=== PATIENT | female | born 1955 | race Caucasian/White ===

== ENCOUNTER → 2018-08-16 | Outpatient (CLI) | payer BC | LOC: COL.RAD 11:00 | DX: S92.311A Displaced fracture of first metatarsal bone, right foot, initial encounter for closed fracture (principal); S92.321A Displaced fracture of second metatarsal bone, right foot, initial encounter for closed fracture; S92.331A Displaced fracture of third metatarsal bone, right foot, initial encounter for closed fracture; S93.321A Subluxation of tarsometatarsal joint of right foot, initial encounter; M14.69 Charcot's joint, multiple sites ==

== ENCOUNTER → 2019-01-28 | Outpatient (CLI) | payer BC | LOC: COL.RAD 08:00 | DX: K76.0 Fatty (change of) liver, not elsewhere classified (principal); N20.0 Calculus of kidney; Q63.2 Ectopic kidney | CPT/HCPCS: Q9967 ==

== ENCOUNTER → 2019-02-14 | Outpatient (CLI) | payer BC | LOC: ZCOL.LAB 14:44 | DX: E11.621 Type 2 diabetes mellitus with foot ulcer (principal) ==

== ENCOUNTER 2019-03-30 13:25 | Inpatient (IN) | payer BC ==
[~2019-03-30] VITALS: Ht 167.6 cm; Wt 97.4 kg
[2019-04-29] VITALS (12 sets, daily range): BP systolic 112–142; BP diastolic 57–100; PULSE 90–112; TEMP 98.1–98.5
[2019-04-29 06:07] LABS: HEMATOCRIT 46.4 % (37.0-47.0); HEMOGLOBIN 15.4 g/dl (12.5-16.0); MEAN CELL VOLUME 91 fl (80.0-100.0); MEAN CORPUSCULAR HEMOGLOBIN 30 pg (27.0-31.0); MEAN CORPUSCULAR HGB CONC 33 g/dl (33.0-37.0); PLATELET COUNT 239 K/mm3 (130-400); RED BLOOD COUNT 5.11 M/mm3 (4.10-5.30); REDCELL DISTRIBUTION WIDTH-CV 14.4 % (11.5-14.5)
[2019-04-29 06:29] LABS: PROTHROMBIN TIME 11.3 SECONDS (9.7-12.8)
[2019-04-29 06:41] LABS: CALCIUM 10.6 mg/dL (8.4-10.2); CREATININE, serum 0.73 (0.52-1.25); POTASSIUM 4.5 mmol/L (3.4-5.0)
[2019-04-29] MEDS ORDERED: CYMBALTA 60MG60 MG PO (06:53)
[2019-04-29] MEDS ORDERED: ZOCOR 10MG10 MG PO (06:53)
[2019-04-29] MEDS ORDERED: LOPRESSOR 550 MG/TAB PO (06:54)
[2019-04-29] MEDS ORDERED: PRIL40 PO (06:55)
[2019-04-29] MEDS ORDERED: ZESTRIL 10MG10 MG PO (06:55)
[2019-04-29] MEDS ORDERED: NEURONTIN300 MG/CAP PO (06:57)
[2019-04-29] MEDS ORDERED: NEURONTIN600 MG/TAB PO ×2 (06:58→07:00)
[2019-04-29] MEDS ORDERED: KLONOPIN 0.5MG0.5 MG PO (07:01)
[2019-04-29] MEDS ORDERED: NORCO 325 MG-7.1 TAB PO (07:01)
[2019-04-29] MEDS ORDERED: REQUIP 0.5MG0.5 MG PO (07:02)
[2019-04-29] MEDS ORDERED: NOVOLOG 100U100 U/M1 SQ (07:03)
[2019-04-29] MEDS ORDERED: OZEMPIC0.25 MG/0. SQ (07:04)
[2019-04-29] MEDS ORDERED: TRESIBA100 UNIT/1 SQ (07:04)
[2019-04-29] MEDS ORDERED: VITAMINC1000TA PO (07:05)
[2019-04-29] MEDS ORDERED: ECHINACEA400 MG PO (07:06)
[2019-04-29] MEDS ORDERED: MELATIN 3 MG-11 TAB PO (07:06)
[2019-04-29] MEDS ORDERED: FORTIFY PO (07:07)
[2019-04-29] MEDS ORDERED: ONE-A-DAY ESSE1 EACH PO (07:08)
[2019-04-29] MEDS ORDERED: CALCIUM CARBON650 M2 (07:09)
[2019-04-29] MEDS ORDERED: XYZAL5 MG PO (07:10)
[2019-04-29] MEDS ORDERED: VITAMIN D31000 I1 PO (07:10)
[2019-04-29] MEDS ORDERED: AZO-CRANBERRY450 MG PO (07:11)
[2019-04-30 03:45] VITALS: BP 109/62; PULSE 91; TEMP 98.3
[2019-04-30 11:42] VITALS: BP 115/63; PULSE 88; TEMP 98.2
[2019-04-30 20:50] VITALS: BP 121/50; PULSE 92; TEMP 98.1
[2019-05-01 03:50] VITALS: BP 126/53; PULSE 88; TEMP 97.4
[2019-05-01 08:23] VITALS: BP 141/73; PULSE 87; TEMP 98.5
[2019-05-01 11:55] VITALS: BP 125/62; PULSE 82; TEMP 98.8
[2019-05-01 16:29] VITALS: BP 105/62; PULSE 80; TEMP 98.4
[2019-05-01 20:18] VITALS: BP 101/63; PULSE 92; TEMP 98.1
[2019-05-01 23:56] VITALS: BP 101/64; PULSE 96; TEMP 98.3
[2019-05-02 05:17] VITALS: BP 110/66; PULSE 67; TEMP 98.4
[2019-05-02] MEDS ORDERED: NORCO 325 MG-7.1 TAB PO (07:03)
[2019-05-02] MEDS ORDERED: SENNA-S 50 MG-81 TAB PO (07:04)
[2019-05-02] MEDS ORDERED: ROXICODONE 55 MG/TAB PO (07:04)
[2019-05-02 07:30] VITALS: BP 106/61; PULSE 106; TEMP 98.7
[2019-05-02 11:36] VITALS: BP 99/49; PULSE 98; TEMP 98.7
== END 2019-05-02 15:42 | DRG 618 ==
LOC: INPTSU 04-29 05:10 → SURG 04-29 07:30
PROVIDERS: Nurse Anesthetist, Certified Registered; ADMIT Orthopaedic Surgery
PROC: 0Y6H0Z1 Detachment at Right Lower Leg, High, Open Approach (ICD-10-PCS; principal; 2019-04-29 07:30)
DX: E11.621 Type 2 diabetes mellitus with foot ulcer (principal); E11.9 Type 2 diabetes mellitus without complications; F32.9 Major depressive disorder, single episode, unspecified; M19.90 Unspecified osteoarthritis, unspecified site; I10 Essential (primary) hypertension; F17.210 Nicotine dependence, cigarettes, uncomplicated; E11.610 Type 2 diabetes mellitus with diabetic neuropathic arthropathy; K74.60 Unspecified cirrhosis of liver; F41.9 Anxiety disorder, unspecified; G25.81 Restless legs syndrome; Z79.4 Long term (current) use of insulin; Z98.51 Tubal ligation status; Z90.710 Acquired absence of both cervix and uterus
CPT/HCPCS: J0690; J1100; J1650; J1815; J1885; J2250; J2370; J2405; J2704; J2795; J3010; J7030; L1830

== ENCOUNTER 2019-05-02 14:17 | Inpatient (IN) | payer BC ==
[~2019-05-02] VITALS: Ht 167.6 cm; Wt 95.6 kg
[~2019-05-02 14:17] MED LIST: AZO-CRANBERRY450 MG PO; CALCIUM CARBON650 M2; CYMBALTA 60MG60 MG PO; ECHINACEA400 MG PO; FORTIFY PO; KLONOPIN 0.5MG0.5 MG PO; LOPRESSOR 550 MG/TAB PO; MELATIN 3 MG-11 TAB PO; NEURONTIN300 MG/CAP PO; NEURONTIN600 MG/TAB PO; NORCO 325 MG-7.1 TAB PO; NOVOLOG 100U100 U/M1 SQ; ONE-A-DAY ESSE1 EACH PO; OZEMPIC0.25 MG/0. SQ; PRIL40 PO; REQUIP 0.5MG0.5 MG PO; ROXICODONE 55 MG/TAB PO; SENNA-S 50 MG-81 TAB PO; TRESIBA100 UNIT/1 SQ; VITAMIN D31000 I1 PO; VITAMINC1000TA PO; XYZAL5 MG PO; ZESTRIL 10MG10 MG PO; ZOCOR 10MG10 MG PO
[2019-05-02 16:23] VITALS: BP 102/49; PULSE 104; TEMP 99.2
[2019-05-02 18:00] VITALS: BP 102/49; PULSE 104; TEMP 99.2
--- NOTE | 2019-05-02 19:00 | NUR ---
PATIENT RESTING IN BED DURING CHANGE OF SHIFT REPORT FROM DAY SHIFT NURSE. CHAIR ALARM ON.
--- NOTE | 2019-05-02 19:56 | NUR ---
Patient arrived to [facility] room #339 with by her side. VSS, but is on oxygen 2 L NC at this time. Patient denied questions about therapies at this time. Patient has home medications that her will bring in for her to give to the nurse. Dr. Dorantes was okay with patient taking these home medications. Reported off to night nurse.
--- NOTE | 2019-05-02 20:00 | NUR ---
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
--- NOTE | 2019-05-03 01:40 | NUR ---
PATIENT RESTING WITH EYES CLOSED, BREATHING NONLABORED AND EVEN. DOES NOT AWAKEN WHEN ROOM ENTERED BY STAFF. BED ALARM ON.
[2019-05-03 05:49] VITALS: BP 104/58; PULSE 96; TEMP 98.4
--- NOTE | 2019-05-03 07:35 | NUR ---
PATIENT RESTING IN BED DURING CHANGE OF SHIFT REPORT, SLEEPING. BREATHING NONLABORED AND EVEN. BED ALARM ON.
--- NOTE | 2019-05-03 10:33 | NUR ---
Initial visit: Patient thanked Health And Wellness Advisor for looking ion on her and offering God's blessings.
--- NOTE | 2019-05-03 11:04 | NUR ---
Patient attending all therapies this morning. Patient reporting pain 4-7/10 this morning and given prn pain meds with good effect. Patient continues on oxygen 2 Liters this morning. She was educated on the need to use her IS to help with expanding her lungs. Patient shows that she is able to use the IS properly. Will continue to monitor.
--- NOTE | 2019-05-03 16:18 | NUR ---
Loan Assistant met with patient to complete initial intake as patient is new to [facility]. Patient lives in [place] with her , Seth (ph#[phone]) and sees Dr. Alfonso Duke for primary care. Patient obtains medications from [facility] with no difficulties. Patient states she has a four wheeled walker and wheelchair at home although the wheelchair she has is not the one she needs. Patient states she needs a wheelchair with leg lifts. Patient states she is also having a walk in tub installed in her home. Patient reports she will also need to obtain a gait belt prior to discharge. SW will continue to monitor for discharge needs.
--- NOTE | 2019-05-03 17:00 | NUR ---
At approximately 11:30 am this nurse, saw CHERI roberts OTMax at the [facility] nurse station reporting that patient was on the floor of the shower. The patient had been getting a shower and the OTS was helping her with this task at the time of the fall. This nurse followed OLYA Allred into patient room #339 where this nurse saw the patient sitting on the floor of the shower. Patient was not dressed, had a towel around her, and patient reported that she fell when she was pivot transferring from the shower bench to the wheelchair. Patient reported that when she was pivoting she started slipping. She also said she was singing the tune, "Slip Sliding away" when she lost her balance and slid and fell on the floor. The posterior part of her Right BKA stump hitting the shower bench and her right upper arm hitting the shower bench when falling to the floor. Patient had her leg securely wrapped and her immobiizer on when this occured. Patient was assessed and was determined that she was okay and the three of us staff members lifted her up from the floor and into her wheelchair. Vital Signs were stable: BP 117/55, P 97, O2 94%, R 20. Patient was then dried off and then transferred from wheelchair to her bed so that this nurse could evaluate for any injuries to her RBKA and Right upper arm. Patient had good range of motion to her right upper arm and did not report any pain to that area. The RBKA stump was evaluated and there were no signs of new bruising or lacerations. The jena to the stump were intact and there was no redness or drainage observed other than a small amount of blood around the suture sight when removing the dressing. Straw Hat Brim Raiser Operator was called as well as Cassidy Chan. Dr. Mckee's office was called and spoke to nurse. No new orders were given. Dr. Dorantes was contacted via Myla Roberts per my request since i was reapplying patient's bandage and immobilizer. No new orders per Dr. Dorantes. Patient was given prn pain meds to help with her normal phantom right stump pain. Staff then continued to monitor. Patient did later report some pain to her right upper arm and ice was applied to that area. No bruising was observed at that time, just some aching. Patient also realized that her blood sugar monitor that was attached to her right posterior arm must have fallen off when she fell. The device could not be found, assuming that it was thrown out with the towels when therapy cleaned up the bathroom. Patient said that she would just order another one, since she only had a few days left on it before it was due to be replaced anyway. This nurse then continued to monitor patient.
[2019-05-03 17:24] VITALS: BP 123/50; PULSE 96; TEMP 98.5
--- NOTE | 2019-05-03 23:47 | NUR ---
PATIENT SLEEPING WHEN DOOR TO ROOM OPENED, DID NOT AWAKEN, BREATHING NONLABORED AND EVEN. BED ALARM ON.
--- NOTE | 2019-05-04 02:50 | NUR ---
PATIENT SLEEPING, DOES NOT AWAKEN WHEN DOOR TO ROOM OPENS AND ROOM ENTERED BY STAFF. BREATHING NONLABORED AND EVEN. OXYGEN CONTINUES PER NASAL CANNULA. BED ALARM ON.
--- NOTE | 2019-05-04 03:46 | NUR ---
PATIENT SLEEPING, DOES NOT AWAKEN WHEN DOOR TO ROOM OPENED, BREATHING NONLABORED AND EVEN, OXYGEN CONTINUES PER NASAL CANNULA. BED ALARM ON.
[2019-05-04 03:49] VITALS: BP 93/54; PULSE 95; TEMP 98.2
--- NOTE | 2019-05-04 07:00 | NUR ---
Report received from HIMANSHU Horn. Pt in bed resting, denies needs, will continue to monitor.
--- NOTE | 2019-05-04 07:29 | NUR ---
Patient resting in bed during change of shift report given to day shift nurse. Bed alarm on.
[2019-05-04 07:43] LABS: BASO % 0.3 % (0.0-2.0); EOS # 0.5 (0.0-0.7); EOS % 4.2 % (0-4.0); GRAN # 7.2 (1.4-6.5); HEMOGLOBIN 14.8 g/dl (12.5-16.0); LYMPH # 2.7 (1.2-3.4); LYMPH % 22.8 % (20.0-51.0); MEAN CELL VOLUME 93 fl (80.0-100.0); MEAN CORPUSCULAR HEMOGLOBIN 31 pg (27.0-31.0); MEAN CORPUSCULAR HGB CONC 33 g/dl (33.0-37.0); MEAN PLATELET VOLUME 9.6 fl (7.4-10.4); MONO # 1.3 (0.1-0.6); MONO % 11.2 % (1.7-9.3); PLATELET COUNT 274 K/mm3 (130-400); RED BLOOD COUNT 4.83 M/mm3 (4.10-5.30); REDCELL DISTRIBUTION WIDTH-CV 14.4 % (11.5-14.5)
[2019-05-04 07:47] LABS: CALCIUM 9.2 mg/dL (8.4-10.2); CREATININE, serum 0.67 (0.52-1.25); MAGNESIUM 1.8 mg/dL (1.6-2.3); POTASSIUM 4.3 mmol/L (3.4-5.0)
--- NOTE | 2019-05-04 08:00 | NUR ---
Assessment charted. Pt c/o pain to R stump after moving in bed this am. PRN pain meds provided. Dressing to RLE is CDI. Denies other needs, will continue to monitor.
--- NOTE | 2019-05-04 16:04 | NUR ---
Fireproof Door Assembler met with patient to provide and review team conference notes. SW spoke with patient about recommendation for Home Health and provided Medicare.gov list of HH agencies. Patient selected [facility]. SW contacted [facility] and faxed a referral. SW also spoke with patient about scheduling a family meeting for tomorrow at 1315. Patient states this will work for her Seth and that she will notify him. Patient's sister, Leanna (ph#[phone]) called during meeting with SW and advised she would be available to participate tomorrow by phone. SW contacted patient's other sister Eileen (ph#[phone]) and left a message. SW contacted Myla, [facility] Director to provide time for tomorrow's meeting. SW to continue to follow.
[2019-05-04 16:46] VITALS: BP 105/50; PULSE 107; TEMP 98.4
--- NOTE | 2019-05-04 18:22 | NUR ---
Pt has done well over shift, did not have any episodes of safety risk for falls today. Resting in bed, eating well, refused insulin tonight with WBG of 106, RN agreeable to this plan. Will give bedside shift report to nightshift nurse who will resume care.
[2019-05-04 20:56] VITALS: BP 118/58; PULSE 108
--- NOTE | 2019-05-04 21:30 | NUR ---
Patient declines snack. Rests in bed. Nurse removed prerna hose LLE and BLE elevated on pillows. HS meds all reviewed along with norco for pain and given. Nurse lowers HOB and patient repositions self up in bed.
--- NOTE | 2019-05-05 02:30 | NUR ---
Patient has been resting quietly in bed with eyes closed. Up to the bathroom with CGA and walker. Voids and has small bm then rests back in bed. Denies need for pain med at this time.
[2019-05-05 05:14] VITALS: BP 128/73; PULSE 101; TEMP 98
[2019-05-05 15:15] VITALS: BP 108/54; PULSE 96; TEMP 98.2
--- NOTE | 2019-05-05 16:00 | NUR ---
Bowling Teacher participated in family meeting which included patient's daughters Kristina (ph#[phone]) and Maribel (ph#[phone]), patient's sisters Eileen and Leanna, patient's Seth, IPR Director Myla, and the therapy team. Myla opened the meeting by explaining purpose then PT/OT review patient's progress and discharge needs. Patient's sisters had planned to travel to [place] to stay with patient upon discharge but now feel they will not be able to due to COVID-19. The therapy team assured patient that with Home Health and some assistance from Seth with bathing, patient should be safe to discharge home. Patient is agreeable to this. Patient's daughter reports she will also be able to stay with her mom for part of the time to provide additional assistance. Patient to discharge Thursday. JOELLEN followed up with patient about ordering a new wheelchair as the one she has is old and would be difficult to obtain leg lifts for. Patient is agreeable to this. JOELLEN presented DME Choice Form and patient selected [facility]. JOELLEN placed form in chart and will follow up with order tomorrow. JOELLEN contacted [facility] and they are still screening referral to ensure coverage is available for patient. JOELLEN to continue to follow.
--- NOTE | 2019-05-05 16:56 | NUR ---
Patient resting in bed at this time. Patient remains alert and oriented, answers questions appropriately. Patient did c/o 7/10 pain in her right leg this morning before therapy, administered PRN pain medication and patient later reported that pain was well controlled. Patient's BG was WNL before lunch and patient declined her scheduled novolog, stating that she wasn't very hungry and was afraid of a hypoglycemic episode. Patient denies further needs at this time, call light within reach.
[2019-05-05 20:46] VITALS: BP 116/59; PULSE 100
--- NOTE | 2019-05-06 05:06 | NUR ---
Patient has rested well throughout the night. At beginning of the shift, patient denied pain. At about 0300, patient ambulated to the restroom with SBA from staff. At that time, patient stated pain 8/10 to right BKA. PRN Oxycodone administered and effective. Patient has been asleep since. Denies any further needs. Will continue to monitor.
[2019-05-06 05:55] VITALS: BP 119/64; PULSE 104; TEMP 98.2
[2019-05-06] MEDS ORDERED: TYLENOL 325MG325 MG PO (10:25)
[2019-05-06] MEDS ORDERED: ZESTRIL 5MG5 MG PO (10:26)
[2019-05-06] MEDS ORDERED: LOPRESSOR 225 MG/TAB PO (10:27)
[2019-05-06] MEDS ORDERED: NOVLOG SQ (10:28)
--- NOTE | 2019-05-06 15:01 | NUR ---
[facility] faxed signed DME order, facesheet, PT notes, and H&P to [facility]. SW followed up with patient who reports her wheelchair was delivered and that she is happy with it. Patient states they also delivered a gait belt to her. SW contacted [facility] who reports they have to decline referral due to lack of coverage. Maria Esther from [facility] advised that [facility] will not allow for PTAs or COTAs to provide treatment. JOELLEN contacted [facility] as they are the only other provider that serves [place] and faxed a referral. HIMANSHU Curtis from [facility] advised they can accept but could not do first visit until Thursday. JOELLEN checked with Myla [facility] Director who advised this would be acceptable. JOELLEN met with patient to provide update. Patient is disappointed she could not utilize [facility] but is agreeable to [facility]. Patient is also agreeable to first visit being on Thursday. JOELLEN faxed discharge order to [facility]. Patient to discharge tomorrow. No additional needs at this time.
[2019-05-06 15:34] VITALS: BP 111/60; PULSE 101; TEMP 98.2
--- NOTE | 2019-05-06 16:06 | NUR ---
Admission QIM scores were reviewed by the team. Code of 4 for toileting hygiene was determined by team discussion to be the most usual performance before interventions for this patient during the assessment period. Code of 4 chosen for toilet transfers was determined by team discussion to be the most usual performance before interventions for this patient during the assessment period.--Myla Roberts, PD
--- NOTE | 2019-05-06 17:32 | NUR ---
Patient currently resting in bed eating dinner at this time. Patient remains alert and oriented, answers questions appropriately. Patient did c/o pain in her right leg and hip this morning before therapy, administered PRN pain medication per order; patient later reported that medication was effective an pain was now well controlled. Patient reports no further needs, call light within reach.
--- NOTE | 2019-05-06 21:00 | NUR ---
SHIFT REPORT REC'D FROM SHIMA DOWNS EARLIER. PT RESTING IN BED. STILL HERE VISITING. REVIEWING DISCHARGE PROCESS. SEE SHIFT ASSESSMENT/ MAR FOR PAIN MED GIVEN. RT STUMP ELEVATED ON PILLOW. OCASIONALLY HAS PHANTOM PAIN. REFUSES ICE PACK. NEED CLARIFICATION ORDERS ON DRSG CHANGE PRIOR TO DC. WILL PASS INFO TO AM RN.
[2019-05-07 05:11] VITALS: BP 132/82; PULSE 112; TEMP 99.4
--- NOTE | 2019-05-07 05:21 | NUR ---
PT ASSISTED UP TO BR W/ WHEELED WALKER. VOIDED CLEAR YELLOW URINE. PROVIDED BIJU RECTAL HYGIENE. PT DENIED ANY PAIN OR ITCHING TO THIS AREA. NOTED LABIAL/VAGINAL AREA ERYTHEMIC/SWOLLEN- MONISTAT OINTMENT INSERTED TO VAG AREA. ENC PT TO FINISH MONISTAT OINTMENT AFTER DC. STAGE 2 OPENED LINEAR WOUND W/RED WOUND BASE APPROX 1.5CM. SURROUNDING AREA RED AND CHAFFED. ENC TO KEEP PANTS OFF MUCH POSSIBLE TO AIR OUT. AREA CLEANED AND DRIED WELL. APPLIED LARGE AMT OF BARRIER OINTMENT. ENC TO KEEP AREA CLEAN AND DRY AFTER GETTING HOME. PT VERBALIZED UNDERSTANDING. WILL REPORT THIS TO AM RN.
--- NOTE | 2019-05-07 08:03 | NUR ---
SHIFT REPORT GIVEN TO KAMRON DYSON RN.
[2019-05-07 09:00] VITALS: TEMP 98.4
--- NOTE | 2019-05-07 12:51 | NUR ---
Patient resting in recliner at this time, call light in reach and chair alarm set. Patient reports 5/10 pain at this time and given prn pain meds. Will continue to monitor.
--- NOTE | 2019-05-07 13:25 | NUR ---
Patient reported some pain to her right leg stump upon changing the dressing before discharge today. Right leg stump is reddened swollen, some bloody drainage to the site was observed. This nurse called (Glost Kiln Operator Ana Dan) reporting the above condition of patient's right stump. Currently waiting for Ana to arrive to assess leg. Patient resting in bed call light in reach and bed alarm is set. Will continue to monitor.
--- NOTE | 2019-05-07 13:26 | NUR ---
SW contacted patients nurse to confirm patients discharge. Nurse informed Sw that patient has signed her discharge paperwork, however they had one more medical task to complete. SW faxed over paperwork to [facility].
--- NOTE | 2019-05-07 14:17 | NUR ---
Patient was seen by EILEEN Perez and PA/LAT TIB/FIB xrays were taken. No new orders other then every other day dressing changes. Apply xeroform over jena, apply 4x4 gauze then secure with gauze dressing from end of stump to over the knee. Secure with codey bandage and immobilizer. Incision looks red and swollen, but only bloody drainage observed. Patient reports pain to that area and has been given pain meds to help with this. Afebrile this shift. Patient will have dressing changed by Home Health Services.
--- NOTE | 2019-05-07 14:39 | NUR ---
JOELLEN received a call from patients nurse inquiring about HH services. JOELLEN informed nurse that discharge documents had already been faxed to [facility]. JOELLEN rminded nurse that organization will not be able to see patient until Thursday. Nurse inqured about organizations knowledge of patients dressing and if they were able to change bandages. JOELLEN attempted to contact [facility], however there was no answer. JOELLEN contacted nurse, explained situation and indicated that she would leave a message with the organization to contact SWS at the hospital if there were any problems and concerns. Nurse indicated that she may be able to type up a direction sheet to give to the family. SW recommended that if nurse was not able to write up a sheet immediately, that she could complete one later and email it to her SW rn house supervisor.
--- NOTE | 2019-05-07 14:48 | NUR ---
SW contacted [facility] and left a message for HH to contact Kimmie or [facility] Tour Manager for follow up.
--- NOTE | 2019-05-07 15:52 | NUR ---
Patient Health Summary, Discharge Summary and Home Meds printed and reviewed with patient. Stressed importance of follow up appointments. Reviewed medications, provided printed prescriptions for [place] and Roxicodone. Belongings gathered by CASING MATERIAL WEIGHER/Milena including wheelchair, walker, cell phone, tunnel elastic operator zigzag, tablet and tunnel elastic operator zigzag, glasses and clothes. Patient transported via wheelchair by RN/Maura and seatbelted for ride home with . Patient denied questions.
--- NOTE | 2019-05-08 20:03 | NUR ---
This nurse was contacted by Bernard at [facility] requesting discharge notes for the Home Health Services. Papers were faxed to [phone]. Also included nursing note clarifying dressing change instructions.
--- NOTE | 2019-05-09 16:46 | NUR ---
Hand Ii Blocker followed up with Bernard at [facility]. Bernard confirmed they would be able to see patient today and that they would be able to do dressing changes for patient.
--- NOTE | 2019-05-10 13:52 | NUR ---
Discharge QIM scores were reviewed by the team. Code of 4 chosen for toileting hygiene was determined by team discussion to be the most usual performance for this patient during the assessment period. Code of 6 for sit to stand was determined by team discussion to be the most usual performance for this patient during the assessment period. Code of 6 chosen for chair/bed to chair transfers was determined by team discussion to be the most usual performance for this patient during the assessment period. Code of 6 chosen for walk 10 feet was determined by team discussion to be the most usual performance for this patient during the assessment period.--Myla Roberts, PD
== END 2019-05-07 15:50 | disposition home health service (06) | DRG 948 ==
PROVIDERS: ADMIT Internal Medicine
DX: R53.81 Other malaise (principal); E11.621 Type 2 diabetes mellitus with foot ulcer; L97.519 Non-pressure chronic ulcer of other part of right foot with unspecified severity; E11.610 Type 2 diabetes mellitus with diabetic neuropathic arthropathy; I10 Essential (primary) hypertension; M19.90 Unspecified osteoarthritis, unspecified site; K74.60 Unspecified cirrhosis of liver; F32.9 Major depressive disorder, single episode, unspecified; M79.7 Fibromyalgia; K59.00 Constipation, unspecified; Z79.4 Long term (current) use of insulin; Z79.891 Long term (current) use of opiate analgesic; Z89.511 Acquired absence of right leg below knee; Z90.710 Acquired absence of both cervix and uterus; Z88.8 Allergy status to other drugs, medicaments and biological substances; Z88.2 Allergy status to sulfonamides
CPT/HCPCS: 99222-AI; 99231-AI; 99232-AI; 99239; A9284; J1650; J1815

== ENCOUNTER 2019-09-06 12:04 | Inpatient (IN) | payer BC ==
[~2019-09-06] VITALS: Ht 167.6 cm; Wt 91.8 kg
[~2019-09-06 12:04] MED LIST changes: +LOPRESSOR 225 MG/TAB PO; +NOVLOG SQ; +TYLENOL 325MG325 MG PO; +ZESTRIL 5MG5 MG PO
[2019-10-20] VITALS (9 sets, daily range): BP systolic 92–113; BP diastolic 48–62; PULSE 75–94; TEMP 97.2–98.7
[2019-10-20] MEDS ORDERED: NOVOLOG FLEX100 U/ML SQ (02:34)
[2019-10-20] MEDS ORDERED: TRESIBA FL200 UNIT/1 SQ (02:35)
[2019-10-20] MEDS ORDERED: PRINIVIL10 MG PO (02:35)
[2019-10-20] MEDS ORDERED: OZEMPIC1 MG/0.75 SQ (02:35)
[2019-10-20] MEDS ORDERED: LOPRESSOR 550 MG/TAB PO (02:36)
--- NOTE | 2019-10-20 06:12 | NUR ---
ADMISSION QUESTIONS COMPLETED. READY FOR SURGERY.
--- NOTE | 2019-10-20 16:07 | NUR ---
JOELLEN met with the patient and her , Seth (ph#[phone]), to discuss discharge plan. The patient was sleeping. The patient lives in [place] with her . Seth reports that the patient is independent with ADLs and has a prosthetic on her right leg, cane, walker, wheelchair, and knee scooter. The patient's PCP is Dr. Nimisha Garza and she receives her medications at [facility]. He reports no difficulties obtaining her meds. The patient does not have advanced directives. Seth reports that the plan at this time is for the patient to return back home with him with outpatient PT at [facility] in [place]. Seth reports that he would like for the patient to stay in the hospital for as long as possible, until her pain is under control and she can safely make transfers. JOELLEN discussed the possiblity of rehab. Seth reports that the patient has been in our IPR and would be interested in IPR again, if needed. SW to continue to follow.
--- NOTE | 2019-10-20 18:25 | NUR ---
Patient sitting up in bed, daughter at the bedside. A&Ox3. VSS. BP elevated, Doctor aware. IV CDI, fluids infusing. Daughter encouraging patient to eat, daughter will assist patient while eating. Patient states that he does not have an appetite, but will try and eat. Lap sites abdomen CDI. SCD bilateral legs. No further needs expressed from the patient. Call light within reach. Bed alarm on
--- NOTE | 2019-10-20 18:35 | NUR ---
Patient sitting up in bed. A&Ox4. VSS, BP low, but stable. IV CDI. Reporting pain in left hip. Pain medication given as requested. Patient tolerated walking to the bathroom with nurse. Standby assist, prosthetic on right leg, walker, and gait belt. Patient tolerating food intake. No further needs expressed from the patient. Call light within reach. Bed alarm on
[2019-10-21] VITALS (8 sets, daily range): BP systolic 74–103; BP diastolic 38–58; PULSE 88–94; TEMP 97.4–98.8
--- NOTE | 2019-10-21 04:21 | NUR ---
Patient ambulated to surgical nurses station and back to her room. Tolerated this well. Prosthetic to right leg is intact. Patient able to remove this on her own. Previous stump appears to be healed. Bulky dressing to left hip clean, dry, and intact. Pulses present. Patient took PRN pain medication and this was effective. Patient noted to be hypotensive at 74/52. FABIANO Gardner notified of low blood pressure. Notified to obtain morning labs as scheduled and that Dr. Mckee would see her this morning. No new orders. No complaints of dizziness or lightheadedness from patient. Will continue to monitor.
[2019-10-21 07:34] LABS: HEMOGLOBIN 12.4 g/dl (12.5-16.0)
--- NOTE | 2019-10-21 13:36 | NUR ---
PT HAS AMBULATED IN HALLS WITH THERAPY. PAIN CONTROLLED WITH PO MEDS. PT CONTINUES TO RATE PAIN AT 7 OR 8 EVEN AFTER ADMINISTRATION OF PAIN MEDS. PT APPEARS TO BE COMFORTABLE WITH NO GRIMACING. PT ABLE TO CARRY NORMAL CONVERSATIONS AND EAT AND DRINK WITH NO DIFFICULTY. PRESSURES REMAIN LOWER WITH LAST ONE OBTAINED @ 97/40. PT DENIES LIGHTHEADEDNESS OR DIZZYNESS. DRESSING CHANGE COMPLETED WITH RN STUDENTS.
--- NOTE | 2019-10-21 16:45 | NUR ---
Office Machines Sales Representative met with the patient to revisit the discharge plan. The patient would like OP PT/OT at [place]. There are no additional needs at this time.
--- NOTE | 2019-10-21 18:46 | NUR ---
REPORT TO LING DOWNS.
--- NOTE | 2019-10-21 20:00 | NUR ---
Pt. sitting up in bed at this time. Pt. is A&OX3, assessment complete. INT to rt. wrist patent. Dressing to lt. hip CDI. Pt. reports pain at a 6 on pain scale at this time, will give pain meds per orders. Pt. denies further needs at this time. Call light within reach.
[2019-10-22 00:05] VITALS: BP 95/55; PULSE 95; TEMP 98.3
[2019-10-22 03:53] VITALS: BP 111/50; PULSE 95; TEMP 98.3
[2019-10-22 07:19] VITALS: BP 101/47; PULSE 90; TEMP 98.1
[2019-10-22 08:25] LABS: HEMOGLOBIN 12.8 g/dl (12.5-16.0)
[2019-10-22 08:26] LABS: HEMATOCRIT 36.9 % (37.0-47.0)
[2019-10-22] MEDS ORDERED: NORCO 325 MG-7.1 TAB PO (08:53)
[2019-10-22] MEDS ORDERED: ROXICODONE 55 MG/TAB PO (08:54)
[2019-10-22] MEDS ORDERED: SENOKOT S 50 MG1 TAB PO (08:55)
[2019-10-22] MEDS ORDERED: ASPI325T6 PO (08:55)
--- NOTE | 2019-10-22 11:30 | NUR ---
Patient has been doing well this morning. Her pain has been controlled. No complaints of nausea. She has discharge orders but is waiting for her ride. She wants to shower after lunch before discharging. Dressing to hip is C/D/I. Ice pack to hip. No other changes at this time. Call light within reach.
[2019-10-22 12:04] VITALS: BP 106/53; PULSE 93; TEMP 99
--- NOTE | 2019-10-22 16:00 | NUR ---
Patient is discharging home. Her is here to get her. Discharge instructions discussed with patient. Explained her scripts are waiting at the [facility] pharmacy. No questions verbalized. Explained when her follow up is. She stated she has the aspirin at home. Reminded her to go to her physical therapy appointment. All her belongings are packed up. Copies of discharge instructions sent with patient. Patient walked out via wheel chair by Valerie QUINTERO.
== END 2019-10-22 16:00 | disposition home or self-care (01) | DRG 470 ==
LOC: JCC 10-20 05:21
PROVIDERS: ADMIT Orthopaedic Surgery
PROC: 0SRB03A Replacement of Left Hip Joint with Ceramic Synthetic Substitute, Uncemented, Open Approach (ICD-10-PCS; principal; 2019-10-20 09:00)
DX: M16.12 Unilateral primary osteoarthritis, left hip (principal)
CPT/HCPCS: A4314; A9284; C1776; J0690; J1100; J1815; J1885; J2250; J2370; J2405; J2704; J7030

== ENCOUNTER → 2019-10-13 | Outpatient (CLI) | payer BC | LOC: COL.LAB | DX: M17.0 Bilateral primary osteoarthritis of knee (principal); M16.0 Bilateral primary osteoarthritis of hip ==

== ENCOUNTER → 2020-07-05 | Outpatient (CLI) | payer BC ==
[~2020-07-05] MED LIST changes: +ADDERALL20 MG PO; +ASPI325T6 PO; +ASPIRIN 81M81 MG/TA2 PO; +DOXYCYCLINE HY100 MG PO; +LUTEIN 15 MG-0.1 SGL PO; +NORCO 325 MG-51 TAB PO; +NOVOLOG FLEX100 U/ML SQ; +OZEMPIC1 MG/0.75 SQ; +PRINIVIL10 MG PO; +PROBIOTIC BLEN1 EACH PO; +SENOKOT S 50 MG1 TAB PO; +TRESIBA FL100 UNIT/1 SQ; +TRESIBA FL200 UNIT/1 SQ; +VITAMIN D250 MCG PO; +turmeric PO
== END ==
LOC: ZCOL.LAB 13:22
DX: S92.422A Displaced fracture of distal phalanx of left great toe, initial encounter for closed fracture (principal)

== ENCOUNTER 2020-08-13 12:25 | Inpatient (IN) | payer BC ==
[2020-08-13] VITALS (9 sets, daily range): BP systolic 93–134; BP diastolic 45–68; PULSE 79–90; TEMP 97.6–98.1
[~2020-08-13] VITALS: Ht 167.6 cm; Wt 91.0 kg
[~2020-08-13 12:25] MED LIST changes: -ADDERALL20 MG PO; -ASPIRIN 81M81 MG/TA2 PO; -DOXYCYCLINE HY100 MG PO; -LUTEIN 15 MG-0.1 SGL PO; -NORCO 325 MG-51 TAB PO; -PROBIOTIC BLEN1 EACH PO; -TRESIBA FL100 UNIT/1 SQ; -VITAMIN D250 MCG PO; -turmeric PO
[2020-08-13] MEDS ORDERED: TRESIBA FL100 UNIT/1 SQ (13:16)
[2020-08-13] MEDS ORDERED: ADDERALL20 MG PO (13:17)
[2020-08-13] MEDS ORDERED: XYZAL5 MG PO (13:20)
[2020-08-13] MEDS ORDERED: PROBIOTIC BLEN1 EACH PO (13:20)
[2020-08-13] MEDS ORDERED: VITAMIN D250 MCG PO (13:23)
[2020-08-13] MEDS ORDERED: LUTEIN 15 MG-0.1 SGL PO (13:24)
[2020-08-13] MEDS ORDERED: AZO-CRANBERRY450 MG PO (13:25)
[2020-08-13] MEDS ORDERED: turmeric PO (13:27)
[2020-08-13 13:51] LABS: BASO # 0.1 (0.0-0.2); BASO % 0.6 % (0.0-2.0); EOS # 0.3 (0.0-0.7); EOS % 3.8 % (0-4.0); GRAN # 4.3 (1.4-6.5); GRAN % 51.6 % (42.2-75.2); HEMATOCRIT 48.6 % (37.0-47.0); HEMOGLOBIN 16.4 g/dl (12.5-16.0); LYMPH # 2.9 (1.2-3.4); LYMPH % 34.1 % (20.0-51.0); MEAN CELL VOLUME 93 fl (80.0-100.0); MEAN CORPUSCULAR HEMOGLOBIN 32 pg (27.0-31.0); MEAN CORPUSCULAR HGB CONC 34 g/dl (33.0-37.0); MEAN PLATELET VOLUME 8.9 fl (7.4-10.4); MONO # 0.8 (0.1-0.6); MONO % 9.7 % (1.7-9.3); PLATELET COUNT 297 K/mm3 (130-400); RED BLOOD COUNT 5.21 M/mm3 (4.10-5.30); REDCELL DISTRIBUTION WIDTH-CV 13.5 % (11.5-14.5)
[2020-08-13 14:13] LABS: ERYTHROCYTE SEDIMENTATION RATE 13 mm/hr (0-30)
[2020-08-13 16:55] LABS: CALCIUM 9.9 mg/dL (8.4-10.2); CREATININE, serum 0.68 (0.52-1.25); POTASSIUM 4.4 mmol/L (3.4-5.0)
[2020-08-13] MEDS ORDERED: ASPIRIN 81M81 MG/TA2 PO (17:14)
--- NOTE | 2020-08-13 19:37 | NUR ---
Patient has done well post op. Denies the need for pain medication, she has been a little sleepy. Vss on 2L. Right lower extremity elevated & iced. Dressing to stump CDI. Teds & scds to Rle. Ivf per orders. Blood sugars stable. She tolerated dinner without nausea. Insulin per home dose. Bedside report to Frances Mahesh
--- NOTE | 2020-08-13 21:30 | NUR ---
PT ASSISTED TO BSC, PIVOTS WELL ON LEFT LEG. DENIES PAIN. HAS TAKES HS MEDS PRESCRIBED. IVF TO LEFT WRIST, NO REDNESS OR SWELLING NOTED. IS ALERT AND ORIENTED X4. DRSG TO RT STUMP D/I, ICE PACK IN PLACE.
[2020-08-14] VITALS (7 sets, daily range): BP systolic 98–131; BP diastolic 33–66; PULSE 85–99; TEMP 98.1–98.5
--- NOTE | 2020-08-14 04:00 | NUR ---
PT DENIES PAIN, REPOSITIONING SELF IN BED.
--- NOTE | 2020-08-14 10:00 | NUR ---
Initial visit; Patient thanked Security Attendant for looking in on her and offering prayer and God's blessings.
--- NOTE | 2020-08-14 10:36 | NUR ---
Patient alert and oriented, answers questions appropriately. See assessment. RLE with dressing CDI. RLE elevated on pillow, ice pack applied. Transfers with assist x1 with gait belt and fww. No c/o at this time.
--- NOTE | 2020-08-14 15:22 | NUR ---
JOELLEN met with the patient and her mems integration engineer to discuss discharge plan. The patient gave permission for JOELLEN to complete intake with the mems integration engineer in the room. The patient lives in [place] with her , Seth (c.#[phone]/h.ph#[phone]). She reports independence with ADLs and has a cane, rollator, and wheelchair. The patient's PCP is Dr. Nimisha Duke and she receives her medications from [facility]. She reports no difficulties obtaining her meds. The patient does not have a DPOA-HC, but she was interested in obtaining a form. JOELLEN provided. The patient plans to return home with her upon discharge. No additional needs at this time. *Discharge plan: home with *
--- NOTE | 2020-08-14 20:15 | NUR ---
PT IN BED, ALERT AND ORIENTED X4. HAS SL TO LEFT WRIST, CONNECTED IV VANCO AND IS INFUSING WITHOUT PROBLEM. HAS DRSG TO RIGHT STUMP, D/I AND ELEVATED ON PILLOWS. DENIES PAIN. VOIDING PER BSC WITH ASSIST OF 1. WILL MONITOR FOR CHANGES.
[2020-08-15 03:34] VITALS: BP 125/68; PULSE 102; TEMP 98.2
--- NOTE | 2020-08-15 06:00 | NUR ---
Pt is one assist to BSC. Denies pain. Drsg intact to right stump.
[2020-08-15 07:41] VITALS: BP 130/54; PULSE 101; TEMP 98.2
--- NOTE | 2020-08-15 07:54 | NUR ---
Patient alert and oriented, answers questions appropriately. See assessment. RLE with NAIF dressing CDI, no drainage noted. Moves RLE freely. Sensation intact to RLE. No c/o at this time.
[2020-08-15 11:36] VITALS: BP 109/57; PULSE 90; TEMP 98.5
[2020-08-15 15:39] VITALS: BP 101/46; PULSE 88; TEMP 98.5
--- NOTE | 2020-08-15 19:32 | NUR ---
RECEIVED CHANGE OF SHIFT REPORT FROM DAY SHIFT NURSE. PATIENT DENIES ANY NEEDS AT TIME OF REPORT. CALL LIGHT WITHIN REACH.
[2020-08-15 19:41] VITALS: BP 123/49; PULSE 95; TEMP 97.9
--- NOTE | 2020-08-15 20:00 | NUR ---
PATIENT DENIES CHEST PAIN/SOA/NAUSEA AT THIS TIME. DENIES DISCOMFORT TO R STUMP AREA, INT SITE CONTINUES. REPORTS NO PROBLEMS REPOSITIONING IN BED AND ABLE TO PIVOT TRANSFER TO BSC WITH NO REPORTED PROBLEMS.
[2020-08-15 23:22] VITALS: BP 107/48; PULSE 90; TEMP 98.2
[2020-08-16 03:15] VITALS: BP 91/45; PULSE 82; TEMP 98
[2020-08-16 07:22] VITALS: BP 113/68; PULSE 89; TEMP 98.1
[2020-08-16] MEDS ORDERED: NORCO 325 MG-51 TAB PO (07:35)
--- NOTE | 2020-08-16 07:36 | NUR ---
CHANGE OF SHIFT REPORT GIVEN TO DAY SHIFT NURSE, JOHNSON DOWNS.
[2020-08-16] MEDS ORDERED: DOXYCYCLINE HY100 MG PO (07:39)
--- NOTE | 2020-08-16 10:51 | NUR ---
Patient alert and oriented, answers questions appropriately. See assessment. RLE with dressing CDI, dressing changed yesterday per Ortho. No c/o at this time.
[2020-08-16 11:14] VITALS: BP 115/61; PULSE 97; TEMP 98
--- NOTE | 2020-08-16 16:13 | NUR ---
Discharge instructions reveiwed with patient, verbalized understanding. Discharged via wheelchair to auto/home with family at 1440.
== END 2020-08-16 14:40 | disposition home or self-care (01) | DRG 494 ==
LOC: SDCO 12:25 → SURG 15:50
PROVIDERS: ADMIT Orthopaedic Surgery
PROC: 0QBG0ZZ Excision of Right Tibia, Open Approach (ICD-10-PCS; principal; 2020-08-13 14:30)
DX: T87.44 Infection of amputation stump, left lower extremity (principal); Z47.81 Encounter for orthopedic aftercare following surgical amputation; I10 Essential (primary) hypertension; M79.7 Fibromyalgia; E11.40 Type 2 diabetes mellitus with diabetic neuropathy, unspecified; Z20.822 Contact with and (suspected) exposure to COVID-19; Z88.8 Allergy status to other drugs, medicaments and biological substances
CPT/HCPCS: J1650; J1815; J2250; J2704; J3010; J3370; J7030; J7050

== ENCOUNTER 2023-09-04 10:05 | Day surgery (SDC) | payer MEDICARE ==
[~2023-09-04] VITALS: Ht 167.6 cm; Wt 105.0 kg
[~2023-09-04 10:05] MED LIST changes: +ADDERALL20 MG PO; +ASPIRIN 81M81 MG/TA2 PO; +DOXYCYCLINE HY100 MG PO; +LR 1,000 ML IV SCH; +LUTEIN 15 MG-0.1 SGL PO; +NORCO 325 MG-51 TAB PO; +Ondansetron 4 MG/2 ML VIAL IV PRN; +PROBIOTIC BLEN1 EACH PO; +TRESIBA FL100 UNIT/1 SQ; +VITAMIN D250 MCG PO; +turmeric PO
[2023-09-04] MEDS ORDERED: fentaNYL 50 MCG/ML 2 ML VIAL ONE (11:04)
[2023-09-04] MEDS ORDERED: Lidocaine PF 2% (20 MG/ML) 5 ML VIAL ONE (11:04)
[2023-09-04 11:21] VITALS: BP 114/65; PULSE 72; TEMP 97.7
[2023-09-04 12:00] VITALS: BP 113/77; PULSE 76; TEMP 97.8
[2023-09-04 12:15] VITALS: BP 106/90; PULSE 72
[2023-09-04] MEDS ORDERED: MASON NATURAL2000 IU PO (12:48)
[2023-09-04] MEDS ORDERED: FIASP 100100 UNIT/1 SQ (12:52)
[2023-09-04] MEDS ORDERED: BAQSIMI3 MG NS (12:56)
[2023-09-04] MEDS ORDERED: NORCO 325 MG-7.1 TAB PO (12:57)
[2023-09-04] MEDS ORDERED: GLUCOPHAGE XR500 M1 PO (13:00)
[2023-09-04] MEDS ORDERED: ULTRAM 50MG TAB50 MG PO (13:05)
[2023-09-04] MEDS ORDERED: LYRICA 75MG CAP75 MG PO (13:07)
[2023-09-04] MEDS ORDERED: PRESERVISION A1 EAC3 PO (13:10)
--- NOTE | 2023-09-04 17:41 | NUR ---
1200: PT TO BAY 1 FROM ENDO SUITE. AMBULATED FROM CART TO RECLINER X2 ASSIST. REPORT RECEIVED FROM ENDO NURSE. PT ALERT AND ORIENTED. DENIES PAIN OR NAUSEA. REQUESTING WATER AND MUFFIN. RESTING IN RECLINER. CALL LIGHT IN REACH. , MERNA, AT BEDSIDE. 1215: PT ALERT AND ORIENTED. TOLERATING MUFFIN AND WATER. IV DC'D AT THIS TIME. DENIES PAIN AND NAUSEA. RESTING IN RECLINER. CALL LIGHT IN REACH. AT BEDSIDE. 1235: DR. RAMÍREZ IN TO SPEAK WITH PT. 1245: DISCHARGE EDUCATION DONE AT THIS TIME. PT STATED UNDERSTANDING OF DC INSTRUCTIONS. DC PAPERWORK GIVEN TO PT. PT DENIES ASSISTANCE WITH DRESSING. 1250: PT AMBULATED INDEPENDENTLY FROM RECLINER TO WHEELCHAIR. PT OFF UNIT AT THIS TIME. PT DC TO HOME WITH PER PERSONAL VEHICLE.
== END 2023-09-04 12:50 | disposition home or self-care (01) ==
LOC: SDCO 10:05
DX: K74.60 Unspecified cirrhosis of liver (principal); Z12.11 Encounter for screening for malignant neoplasm of colon; D12.2 Benign neoplasm of ascending colon; E11.65 Type 2 diabetes mellitus with hyperglycemia; E11.42 Type 2 diabetes mellitus with diabetic polyneuropathy; Z79.4 Long term (current) use of insulin; Z79.84 Long term (current) use of oral hypoglycemic drugs; Z89.511 Acquired absence of right leg below knee
CPT/HCPCS: J2704; J3010

== ENCOUNTER 2023-11-07 07:41 | Emergency (ER) | payer MEDICARE ==
[~2023-11-07] VITALS: Ht 167.6 cm; Wt 104.5 kg
[~2023-11-07 07:41] MED LIST changes: +BAQSIMI3 MG NS; +FIASP 100100 UNIT/1 SQ; +GLUCOPHAGE XR500 M1 PO; -LR 1,000 ML IV SCH; +LYRICA 75MG CAP75 MG PO; +MASON NATURAL2000 IU PO; -Ondansetron 4 MG/2 ML VIAL IV PRN; +PRESERVISION A1 EAC3 PO; +ULTRAM 50MG TAB50 MG PO
[2023-11-07 07:42] VITALS: TEMP 98.2
[2023-11-07 08:30] LABS: BASO % 0.5 % (0.0-2.0); EOS # 0.3 K/mm3 (0.0-0.7); EOS % 3.4 % (0.0-4.0); GRAN # 5.1 K/mm3 (1.4-6.5); GRAN % 63.7 % (42.2-75.2); HEMATOCRIT 43.8 % (37.0-47.0); HEMOGLOBIN 15.1 g/dl (12.5-16.0); LYMPH # 1.8 K/mm3 (1.2-3.4); MEAN CELL VOLUME 94 fl (80.0-100.0); MEAN CORPUSCULAR HEMOGLOBIN 32 pg (27-31); MEAN CORPUSCULAR HGB CONC 35 g/dl (33.0-37.0); MONO # 0.7 K/mm3 (0.1-0.6); PLATELET COUNT 189 K/mm3 (130-400); RED BLOOD COUNT 4.66 M/mm3 (4.10-5.30); REDCELL DISTRIBUTION WIDTH-CV 13.8 % (11.5-14.5)
[2023-11-07 08:36] LABS: INR 1.1 (0.8-3.0)
[2023-11-07 08:45] LABS: ALANINE AMINOTRANSFERASE 27 U/L (0-55); ALBUMIN 3.5 g/dL (3.4-4.8); ALKALINE PHOSPHATASE 88 U/L (40-150); ANION GAP 12 mmol/L (7-16); AST,SGOT 32 U/L (5-34); BILIRUBIN,TOTAL 0.6 mg/dL (0.2-1.2); BLOOD UREA NITROGEN 19 mg/dL (10-20); CALCIUM 9.5 mg/dL (8.4-10.2); CHLORIDE 101 mEq/L (98-107); CREATININE, serum 0.81 mg/dL (0.57-1.11); GLUCOSE 210 mg/dL (70-99); POTASSIUM 4.3 mEq/L (3.5-4.5); SODIUM 135 mEq/L (136-145); TOTAL PROTEIN 7.3 g/dl (6.2-8.1)
[2023-11-07] MEDS ORDERED: Morphine 4 MG/ML VIAL IV ONE (08:45)
[2023-11-07] MEDS ORDERED: Pantoprazole 40 MG in NS 10 ML IV ONE (08:45)
[2023-11-07 09:10] LABS: TROPONIN-I < 0.010 ng/mL (0.00-0.033)
[2023-11-07] MEDS ORDERED: NEURONTIN600 MG/TAB PO (11:41)
[2023-11-07 11:51] VITALS: BP 156/79; PULSE 82
[2023-11-07] MEDS ORDERED: Gabapentin 300 MG CAP PO ONE (12:00)
== END 2023-11-07 12:06 | disposition home or self-care (01) ==
LOC: COL.ER 07:41
PROVIDERS: Emergency Medicine
DX: R07.9 Chest pain, unspecified (principal); Z87.891 Personal history of nicotine dependence
CPT/HCPCS: J2270; J2470